=== PATIENT | female | born 1960 | race Caucasian/White ===

== ENCOUNTER 2017-03-28 13:22 | Emergency (ER) | payer OTHER ==
[2017-03-28 13:46] VITALS: BP 124/83
--- NOTE | 2017-03-28 14:51 | UC ---
Complaint Female HPI - HPI Summary HPI Summary: 56 YEAR OLD FEMALE PRESENTS WITH COMPLAINS OF URINARY FREQUENCY, URGENCY, AND BURNING. - History Of Current Complaint Chief Complaint: UCGU Stated Complaint: UTI COMPLAINT Time Seen by Provider: 03/28/17 14:49 Hx Obtained From: Patient Onset/Duration: Sudden Onset, Lasting Days Timing: Constant Severity Initially: Moderate Severity Currently: Moderate Pain Scale Used: 0-10 Numeric - 5 Character: Sharp Associated Signs And Symptoms: Positive: Back Pain - Allergies/Home Medications Allergies/Adverse Reactions: Allergies Allergy/AdvReac Type Severity Reaction Status Date / Time Coconut Oil Allergy Hives Verified 03/28/17 13:46 Penicillins Allergy Unknown Verified 03/28/17 13:46 Reaction Details PMH/Surg Hx/FS Hx/Imm Hx - Surgical History Surgical History: Yes Surgery Procedure, Year, and Place: [facility] - Social History Alcohol Use: Occasionally Substance Use Type: None Smoking Status (MU): Never Smoked Tobacco Review of Systems Constitutional: Negative Skin: Negative Eyes: Negative ENT: Negative Respiratory: Negative Cardiovascular: Negative Gastrointestinal: Negative Genitourinary: Dysuria, Frequency, Urgency Motor: Negative Neurovascular: Negative Musculoskeletal: Negative Neurological: Negative Psychological: Negative All Other Systems Reviewed And Are Negative: Yes Physical Exam Triage Information Reviewed: Yes Vital Signs: Initial Vital Signs Temp 35.6 C 03/28/17 13:41 Pulse 67 03/28/17 13:41 Resp 18 03/28/17 13:41 BP 124/83 03/28/17 13:41 Pulse Ox 98 03/28/17 13:41 Eye Exam: Normal ENT Exam: Normal Dental Exam: Normal Neck exam: Normal Neck: Positive: 1 Respiratory Exam: Normal Cardiovascular Exam: Normal Abdominal Exam: Normal Musculoskeletal Exam: Normal Neurological Exam: Normal Psychological Exam: Normal Skin Exam: Normal Complaint Female Dx - Differential Dx/Diagnosis Provider Diagnoses: URINARY TRACT INFECTION. URINARY URGENCY. URINARY FREQUENCY Discharge - Discharge Plan Condition: Stable Disposition: HOME Prescriptions: Nitrofurantoin Monohyd Macro [Macrobid] 100 mg PO BID #[id number] cap Patient Education Materials: Urinary Tract Infection in Women (ED) Referrals: Carly Padilla MD [Primary Care Provider] -
== END 2017-03-28 15:10 | disposition home or self-care (01) ==
LOC: UCEAST 13:22
DX: N39.0 Urinary tract infection, site not specified (principal); Z88.0 Allergy status to penicillin; R39.15 Urgency of urination; R35.0 Frequency of micturition
CPT/HCPCS: 81003; 87077; 87086; 87186; 99212; G0463

== ENCOUNTER 2017-05-03 08:00 | Emergency (ER) | payer OTHER ==
[2017-05-03 08:17] VITALS: BP 132/71
--- NOTE | 2017-05-03 08:38 | UC ---
Minor Trauma HPI - HPI Summary HPI Summary: Patient presents s/p traumatic injury to the right wrist, she fell last night going up her deck. This morning she complains of pain of the wrist with movement of pronation, and supination.She denies any numbness of tingling of the fingers. Denies any head or neck injury and no LOC. - History of Current Complaint Chief Complaint: UCUpperExtremity Stated Complaint: HAND/WRIST INJURY Time Seen by Provider: 05/03/17 08:26 Hx Obtained From: Patient ?: No Onset/Duration: Sudden Onset, Lasting Days Onset Of Pain: Immediate Severity Initially: Mild Severity Currently: Moderate Mechanism Of Injury: Fall From A Standing Position Aggravating Factor(s): Movement Alleviating Factor(s): Rest - Risk Factors Penetrating Injury Risk Factors: Negative - Allergies/Home Medications Allergies/Adverse Reactions: Allergies Allergy/AdvReac Type Severity Reaction Status Date / Time Ciprofloxacin [From Cipro] Allergy Nausea And Verified 05/03/17 08:17 Vomiting Coconut Oil Allergy Hives Verified 03/28/17 13:46 Penicillins Allergy Unknown Verified 03/28/17 13:46 Reaction Details Home Medications: Home Medications NK [No Home Medications Reported] 05/03/17 [History Confirmed 05/03/17] PMH/Surg Hx/FS Hx/Imm Hx Previously Healthy: Yes - Surgical History Surgical History: Yes Surgery Procedure, Year, and Place: [facility] - Family History Known Family History: Positive: None - cancer, Cardiac Disease - Social History Occupation: Employed Part-time Lives: Alone Alcohol Use: Occasionally Substance Use Type: None Smoking Status (MU): Never Smoked Tobacco Review of Systems Constitutional: Negative Skin: Negative Eyes: Negative ENT: Negative Respiratory: Negative Cardiovascular: Negative Gastrointestinal: Negative Genitourinary: Negative Motor: Negative Musculoskeletal: Myalgia Neurological: Negative All Other Systems Reviewed And Are Negative: Yes Physical Exam Triage Information Reviewed: Yes Appearance: Well-Appearing Vital Signs: Initial Vital Signs Temp 99.0 F 05/03/17 08:11 Pulse 63 05/03/17 08:11 Resp 18 05/03/17 08:11 BP 132/71 05/03/17 08:11 Pulse Ox 100 05/03/17 08:11 Vital Signs Reviewed: Yes Eye Exam: Normal ENT Exam: Normal Neck exam: Normal Respiratory Exam: Normal Cardiovascular Exam: Normal Abdominal Exam: Normal - tenderness to palpation over the mid-dorsum of wrist. no areas of eccymosis, erythema, or edema. neuro-no dificits. vasc+radial and ulner pulses. Skin Exam: Normal Minor Trauma Course/Dx - Course Course Of Treatment: Patient presents s/p fall complaining of right wrist pain. Xray were obtained and read as negative for fracture, but if pain persist repeat imaging was recommended. I told her to follow up with ortho in two days if pain persist. She was placed in a cock up splint for comfort and support. Pain addressed with NSAIDS. Dischaged and was neuro-vasc intact. - Differential Dx/Diagnosis Differential Diagnosis/HQI/PQRI: Sprain, Strain Provider Diagnoses: sprain right wrist. strain right wrist Discharge - Discharge Plan Condition: Stable Disposition: HOME Patient Education Materials: Wrist Sprain (ED) Referrals: Carly Padilla MD [Primary Care Provider] - Jaya Cross MD [Medical Doctor] -
--- NOTE | 2017-05-03 08:59 | RAD ---
INDICATION: Right wrist injury COMPARISON: None TECHNIQUE: AP, lateral, and oblique views were obtained. FINDINGS: The bony structures, joint spaces, and soft tissues are normal for age. IMPRESSION: NO ACUTE BONY FINDINGS
== END 2017-05-03 09:36 | disposition home or self-care (01) ==
LOC: UCEAST 08:00
DX: S63.501A Unspecified sprain of right wrist, initial encounter (principal); W18.30XA Fall on same level, unspecified, initial encounter; Y92.9 Unspecified place or not applicable
CPT/HCPCS: 99212; G0463